=== PATIENT | male | born 1985 | race Two or more races ===

== ENCOUNTER 2019-06-19 16:34 | Emergency (ER) | payer OTHER, MEDICAID ==
[~2019-06-19] VITALS: Ht 172.7 cm; Wt 82.0 kg
[2019-06-19] MEDS ORDERED: BACITRACIN ZINC OINT UDPKT TOP ONE (19:15)
[2019-06-19] MEDS ORDERED: ACETAMINOPHEN WITH CODEINE 300/30MG TABLET PO ONE (19:15)
[2019-06-19] MEDS ORDERED: KETOROLAC 60MG/2ML VIAL IM ONE (19:45)
[2019-06-19] MEDS ORDERED: BACITRACIN 15GM TUBE TOP ONE (19:45)
[2019-06-19] MEDS ORDERED: MORPHINE SULFATE 10 MG/ML CPJ IM ONE (20:30)
[2019-06-19 22:19] VITALS: BP 138/85
== END 2019-06-19 22:25 | disposition home or self-care (01) ==
LOC: ER 16:34
DX: S82.64XA Nondisplaced fracture of lateral malleolus of right fibula, initial encounter for closed fracture (principal); S80.812A Abrasion, left lower leg, initial encounter; S40.812A Abrasion of left upper arm, initial encounter; S40.811A Abrasion of right upper arm, initial encounter; S30.811A Abrasion of abdominal wall, initial encounter; V23.4XXA Motorcycle driver injured in collision with car, pick-up truck or van in traffic accident, initial encounter; Y93.89 Activity, other specified; Y92.488 Other paved roadways as the place of occurrence of the external cause
CPT/HCPCS: 29505; 73560; 73620; 96372; 99283; A4217; J1885; J2270; Z7610; A4565